=== PATIENT | female | born 1985 ===

== ENCOUNTER 2020-04-28 05:23 | Day surgery (SDC) | payer OTHER ==
[2020-04-26 15:32] VITALS: BMI 27.9
[2020-04-28 07:05] LABS: PH,URINE 5.5 (5.0-8.0); URINE APPEARANCE CLEAR; URINE BILIRUBIN NEGATIVE (NEGATIVE); URINE COLOR YELLOW; URINE GLUCOSE (UA) NEGATIVE (NEGATIVE); URINE KETONE NEGATIVE (NEGATIVE); URINE LEUK ESTERASE NEGATIVE (NEGATIVE); URINE NITRITE NEGATIVE (NEGATIVE); URINE PROTEIN NEGATIVE (NEGATIVE); URINE UROBILINOGEN 0.2 mg/dL (0.2-1.0)
[2020-04-28] MEDS ORDERED: LIDOCAINE HCL/PF 2% SDV 5ML VIAL ONE (09:44)
[2020-04-28] MEDS ORDERED: PROPOFOL 20 ML ONE (09:44)
[2020-04-28] MEDS ORDERED: MIDAZOLAM HCL 2 MG/2 ML SINGLE DOSE VIAL ONE ×2 (09:44)
[2020-04-28] MEDS ORDERED: DEXAMETHASONE SOD PHOSPHATE 4 MG/1 ML VIAL ONE (09:44)
[2020-04-28] MEDS ORDERED: oxyCODONE HCL 5 MG TABLET PO PRN (10:37)
[2020-04-28] MEDS ORDERED: ONDANSETRON 4 MG/2 ML VIAL IVPUSH PRN (10:37)
[2020-04-28] MEDS ORDERED: LIDOCAINE HCL 1%, 10 MG/ML (20ML VIAL) ONE (10:40)
[2020-04-28] MEDS ORDERED: LACTATED RINGERS SOLUTION 1,000 ML IV SCH (10:45)
[2020-04-28] MEDS ORDERED: SODIUM CHLORIDE 0.9% P/F 10 ML VIAL IJ ONE (11:17)
[2020-04-28] MEDS ORDERED: ceFAZolin SODIUM 1 GM VIAL IVPB ONE (11:42)
[2020-04-28] MEDS ORDERED: LIDOCAINE HCL 1%, 10 MG/ML (20ML VIAL) NR ONE (11:42)
[2020-04-28] MEDS ORDERED: BACITRACIN 15 GM TUBE TOPICAL OINTMENT TP ONE (12:06)
[2020-04-28 12:38] VITALS: TEMP 97.3
[2020-04-28 13:29] VITALS: BP 123/90; PULSE 80
--- NOTE | 2020-04-28 15:38 | OP ---
DATE OF OPERATION: 04/28/2020 PREOPERATIVE DIAGNOSIS: Left breast intraductal papilloma. POSTOPERATIVE DIAGNOSIS: Left breast intraductal papilloma. PROCEDURE: Left breast wide localized excisional biopsy. SURGEON: Sandy Joseph MD ANESTHESIA: Local, IV sedation. ESTIMATED BLOOD LOSS: Minimal. COMPLICATIONS: None. This was a sterile procedure. INDICATIONS: Patient presented with a left nipple discharge and had a mammogram and ultrasound that noted a nodule in the left 12 o'clock retroareolar location. This was also enhancing on MRI. Therefore, she underwent a needle biopsy of this which showed an intraductal papilloma. excision. The procedure was discussed and all her questions answered. After the biopsy, she no longer had nipple discharge. PROCEDURE IN DETAIL: Patient brought to [facility] in [place], taken to breast imaging where wire was used the localize the clip in the left 12 o'clock retroareolar location. She was then brought to the operating room, and after IV sedation, IV antibiotics, the left breast was prepped in the usual sterile fashion. The area in the upper retroareolar left breast was anesthetized with 1% lidocaine with epinephrine. A periareolar incision was made in the upper left breast, and a wire was used as a guide to get down to the area of interest, which was excised en bloc and sent for specimen radiograph. Hemostasis assured with electrocautery. The with interrupted 2-0 Vicryl, skin approximated with interrupted 2-0 Vicryl, running 4-0 Biosyn. A sterile dressing with Tegaderm, 4 x 4's applied. The specimen radiograph showed the clip and wire to be intact on the specimen. This was then sent to pathology for permanent section. She tolerated the procedure well, was taken to recovery in good condition. SANDY JOSEPH M.D. [id number]
--- NOTE | 2020-05-02 09:26 | PATH ---
Surgical Pathology Report Patient Name: VIVIENNE GARCIA Med. Rec. #: [id number] /Age/Gender: 1985 (Age: 34) / F Account: [id number] Location: [facility] Taken: 04/28/2020 Received: 04/28/2020 Reported: 05/02/2020 Physicians: Sandy Sullivan M.D. Specimen(s) Received LEFT BREAST MASS Clinical History Left intraductal papilloma on ultrasound core biopsy Final Diagnosis BREAST, LEFT, EXCISIONAL BIOPSY: INTRADUCTAL PAPILLOMA WITH FOCAL SCLEROSIS. FIBROCYSTIC CHANGES INCLUDING STROMAL FIBROSIS, MICROCYSTS, CYST APOCRINE METAPLASIA, USUAL DUCTAL HYPERPLASIA, AND SECRETORY CHANGE. AREA OF HEMORRHAGE AND ASSOCIATED MILD ACUTE INFLAMMATORY INFILTRATE COMPATIBLE WITH PRIOR BIOPSY SITE. Electronically Signed Elizabeth Carrillo M.D. Gross Description Received fresh on an AccuGrid, labeled "left breast excisional biopsy," is a 5.0 x 3.9 x 1.4 cm. jason-yellow, irregular, portion of fibroadipose tissue with a needle localization wire present. The specimen is unoriented. There is no skin or nipple present. The specimen is inked blue and serially sectioned. Sectioning reveals diffuse dense, white, focally firm fibrous tissue. The specimen is entirely and sequentially submitted in 11 cassettes. Total formalin fixation time: Approximately 6 hours. /04/28/2020 [facility]04/28/2020
== END 2020-04-28 13:33 | disposition home or self-care (01) ==
LOC: JASU-SURG 05:23
PROVIDERS: ATTEND Surgery
PROC: 0HBU0ZX Excision of Left Breast, Open Approach, Diagnostic (ICD-10-PCS; principal; 2020-04-28 10:00)
DX: D24.2 Benign neoplasm of left breast (principal); N60.32 Fibrosclerosis of left breast; N60.12 Diffuse cystic mastopathy of left breast; N60.82 Other benign mammary dysplasias of left breast
CPT/HCPCS: 19281; 76098-TC-FY; 81003; 84703; 88307-TC